=== PATIENT | male | born 1950 | race Two or more races ===

== ENCOUNTER 2017-03-15 08:26 | Emergency (ER) | payer MEDICARE, MEDICAID ==
[~2017-03-15] VITALS: Ht 175.3 cm; Wt 99.8 kg
[~2017-03-15 08:26] MED LIST: ALEN35TA2; AMLO5TAB2 PO; BENA20TA; CALC600T57; CHOL100029; INSLANTI; INSLISPI
[2017-03-15 10:27] VITALS: BP 101/55
== END 2017-03-15 15:09 | disposition home or self-care (01) ==
LOC: ER 08:26
DX: S90.812A Abrasion, left foot, initial encounter (principal); L03.116 Cellulitis of left lower limb; E11.9 Type 2 diabetes mellitus without complications; I48.91 Unspecified atrial fibrillation; Z79.01 Long term (current) use of anticoagulants; I10 Essential (primary) hypertension; E78.5 Hyperlipidemia, unspecified; Z90.89 Acquired absence of other organs; Z88.6 Allergy status to analgesic agent; Z89.512 Acquired absence of left leg below knee; X58.XXXA Exposure to other specified factors, initial encounter; Y93.89 Activity, other specified; Y99.8 Other external cause status; Y92.89 Other specified places as the place of occurrence of the external cause

== ENCOUNTER 2017-05-28 11:21 | Emergency (ER) | payer MEDICARE, MEDICAID ==
[~2017-05-28] VITALS: Ht 180.3 cm; Wt 95.3 kg
[2017-05-28 12:51] LABS: Basophils # (auto) 0 uL; Basophils % (auto) 0.3 % (0.0-2.0); CONDITION Y; Eosinophils # (auto) 0.1 uL; Eosinophils % (auto) 2.5 % (0.0-7.0); Hematocrit 33.4 % (41.0-53.0); Hemoglobin 11.9 g/dL (13.5-17.5); Lymphocytes # (auto) 1.1 uL; Lymphocytes % (auto) 19.5 % (10.0-50.0); Mean Corpuscular Hemoglobin 31.6 pg (28.0-32.0); Mean Corpuscular Hgb Conc. 35.7 g/dL (32.0-36.0); Mean Corpuscular Volume 88.7 fL (80.0-100.0); Mean Platelet Volume 9.9 fL (7.4-10.4); Monocytes # (auto) 0.5 uL; Monocytes % (auto) 9.4 % (0.0-12.0); Neutrophils # (auto) 3.7 uL; Neutrophils % (auto) 68.3 % (37.0-80.0); Platelet Count (auto) 89 10^3/uL (140-450); Red Cell Distribution Width 14.3 % (11.6-16.0); White Blood Cell 5.4 10^3/uL (4.4-10.8)
[2017-05-28 13:11] LABS: Bilirubin, Total 1.3 mg/dL (0.2-1.0); Calcium 8.7 mg/dL (8.5-10.1); Potassium 4.1 mmol/L (3.5-5.1)
[2017-05-28] MEDS ORDERED: SODIUM CHLORIDE 0.9% 1,000 ML IV ONE (20:00)
[2017-05-28] MEDS ORDERED: InsuLIN REG 1unit/0.01ml Soln (100units/ml) IV ONE (21:15)
[2017-05-28 21:30] VITALS: BP 134/71
[2017-05-28 21:30] LABS: Urine Bilirubin Negative (Negative); Urine Blood 2+ /uL (Negative); Urine Color Yellow (Yellow); Urine Glucose 4+ mg/dL (Normal); Urine Hyaline Cast FEW /lpf (0 - 2); Urine Ketone Negative (Negative); Urine Nitrite Negative (Negative); Urine RBC 247 /hpf (0 - 3); Urine Squamous Epithelial Cell FEW /hpf (<5); Urine Urobilinogen Normal (Negative); Urine pH 5.5 (5.0-8.0)
[2017-05-28 21:51] LABS: INR 1.18 (0.9-1.15); Partial Thromboplastin Time 31.7 sec (22.64-33.71); Prothrombin Time 12.9 sec (9.37-12.3)
== END 2017-05-29 00:41 | disposition home or self-care (01) ==
LOC: ER 11:32
DX: D69.6 Thrombocytopenia, unspecified (principal); K74.60 Unspecified cirrhosis of liver; E11.9 Type 2 diabetes mellitus without complications; R16.1 Splenomegaly, not elsewhere classified; I48.91 Unspecified atrial fibrillation; I25.10 Atherosclerotic heart disease of native coronary artery without angina pectoris; I10 Essential (primary) hypertension; E78.5 Hyperlipidemia, unspecified; I73.9 Peripheral vascular disease, unspecified; Z89.512 Acquired absence of left leg below knee; Z79.4 Long term (current) use of insulin; Z88.6 Allergy status to analgesic agent
CPT/HCPCS: 36415; 74176; 80053; 80307; 81001; 82010; 82962; 85025; 85610; 85730; 96361; 96374; 99285; J1815; J7030

== ENCOUNTER 2017-11-01 09:23 | Emergency (ER) | payer MEDICARE, MEDICAID ==
[~2017-11-01] VITALS: Ht 180.3 cm; Wt 79.8 kg
[2017-11-01 11:35] LABS: Basophils # (auto) 0 uL; Basophils % (auto) 0.8 % (0.0-2.0); Eosinophils # (auto) 0.1 uL; Eosinophils % (auto) 3.5 % (0.0-7.0); Hematocrit 33.9 % (41.0-53.0); Hemoglobin 11.6 g/dL (13.5-17.5); Lymphocytes # (auto) 0.7 uL; Lymphocytes % (auto) 17.7 % (10.0-50.0); Mean Corpuscular Hemoglobin 31.3 pg (28.0-32.0); Mean Corpuscular Hgb Conc. 34.2 g/dL (32.0-36.0); Mean Corpuscular Volume 91.6 fL (80.0-100.0); Monocytes # (auto) 0.4 uL; Monocytes % (auto) 10.3 % (0.0-12.0); Neutrophils # (auto) 2.5 uL; Neutrophils % (auto) 67.7 % (37.0-80.0); Nucleated Red Blood Cells % 0.2 %; Platelet Count (auto) 71 10^3/uL (140-450); Red Cell Distribution Width 15.2 % (11.8-14.3); White Blood Cell 3.8 10^3/uL (4.4-10.8)
[2017-11-01 11:49] LABS: Alanine Aminotransferase 42 U/L (16-61); Albumin 2.5 g/dL (3.4-5.0); Alkaline Phosphatase 118 U/L (45-117); Anion Gap 8 (5-15); Aspartate Aminotransferase 62 U/L (15-37); BUN/Creatinine Ratio 17.1; Bilirubin, Total 0.9 mg/dL (0.2-1.0); Blood Urea Nitrogen 19 mg/dL (7-18); Calcium 7.8 mg/dL (8.5-10.1); Carbon Dioxide 24 mmol/L (21-32); Chloride 109 mmol/L (98-107); GFR African American 85 mL/min; GFR Non-African American 70 mL/min; Glucose 208 mg/dL (74-106); Potassium 4.6 mmol/L (3.5-5.1); Sodium 141 mmol/L (136-145)
[2017-11-01 14:54] VITALS: BP 122/67
== END 2017-11-01 14:54 | disposition home or self-care (01) ==
LOC: EDBD → ER 09:23
DX: K74.60 Unspecified cirrhosis of liver (principal); E11.9 Type 2 diabetes mellitus without complications; E78.5 Hyperlipidemia, unspecified; I10 Essential (primary) hypertension; Z90.49 Acquired absence of other specified parts of digestive tract
CPT/HCPCS: 36415; 74176; 80053; 84484; 85025; 93005; 94761

== ENCOUNTER 2017-11-04 09:00 | Emergency (ER) | payer MEDICARE, MEDICAID ==
[~2017-11-04] VITALS: Ht 180.3 cm; Wt 79.8 kg
[2017-11-04 10:41] LABS: Basophils # (auto) 0 uL; Basophils % (auto) 0.8 % (0.0-2.0); Eosinophils # (auto) 0.2 uL; Eosinophils % (auto) 4.3 % (0.0-7.0); Hematocrit 32.8 % (41.0-53.0); Hemoglobin 11.1 g/dL (13.5-17.5); Lymphocytes % (auto) 18.8 % (10.0-50.0); Mean Corpuscular Hgb Conc. 33.8 g/dL (32.0-36.0); Mean Corpuscular Volume 91.9 fL (80.0-100.0); Monocytes # (auto) 0.6 uL; Monocytes % (auto) 11.1 % (0.0-12.0); Neutrophils # (auto) 3.4 uL; Nucleated Red Blood Cells % 0.1 %; Platelet Count (auto) 81 10^3/uL (140-450); Red Blood Cells 3.57 10^6/uL (4.5-5.90); Red Cell Distribution Width 15.5 % (11.8-14.3); White Blood Cell 5.3 10^3/uL (4.4-10.8)
[2017-11-04 10:53] LABS: INR 1.14 (0.9-1.15); Partial Thromboplastin Time 32.4 sec (22.64-33.71); Prothrombin Time 12.4 sec (9.37-12.3)
[2017-11-04 11:12] LABS: Albumin 2.7 g/dL (3.4-5.0); BUN/Creatinine Ratio 15.2; Bilirubin, Total 1.2 mg/dL (0.2-1.0); Calcium 8.2 mg/dL (8.5-10.1); Potassium 4.3 mmol/L (3.5-5.1); Total Protein 7.5 g/dL (6.4-8.2)
[2017-11-04 16:02] VITALS: BP 120/68
== END 2017-11-04 16:48 | disposition home or self-care (01) ==
LOC: EDBD → ER 09:00
DX: R18.8 Other ascites (principal); E11.9 Type 2 diabetes mellitus without complications; E78.5 Hyperlipidemia, unspecified; I10 Essential (primary) hypertension; Z90.49 Acquired absence of other specified parts of digestive tract; Z79.4 Long term (current) use of insulin
CPT/HCPCS: 36415; 76705; 80053; 85025; 85610; 85730

== ENCOUNTER 2017-11-15 10:09 | Emergency (ER) | payer MEDICARE, MEDICAID ==
[~2017-11-15] VITALS: Ht 180.3 cm; Wt 79.8 kg
[2017-11-15 10:55] LABS: Basophils # (auto) 0 uL; Basophils % (auto) 0.4 % (0.0-2.0); Eosinophils # (auto) 0.1 uL; Eosinophils % (auto) 1.9 % (0.0-7.0); Hematocrit 30.3 % (41.0-53.0); Hemoglobin 10.5 g/dL (13.5-17.5); Lymphocytes # (auto) 0.8 uL; Lymphocytes % (auto) 15.2 % (10.0-50.0); Mean Corpuscular Hemoglobin 31.7 pg (28.0-32.0); Mean Corpuscular Hgb Conc. 34.6 g/dL (32.0-36.0); Mean Corpuscular Volume 91.7 fL (80.0-100.0); Monocytes # (auto) 0.5 uL; Monocytes % (auto) 9.2 % (0.0-12.0); Neutrophils # (auto) 3.7 uL; Neutrophils % (auto) 73.3 % (37.0-80.0); Platelet Count (auto) 83 10^3/uL (140-450); Red Cell Distribution Width 15.2 % (11.8-14.3)
[2017-11-15 11:18] LABS: Alanine Aminotransferase 45 U/L (16-61); Albumin 2.6 g/dL (3.4-5.0); Alkaline Phosphatase 128 U/L (45-117); Amylase 87 U/L (25-115); Anion Gap 9 (5-15); Aspartate Aminotransferase 66 U/L (15-37); BUN/Creatinine Ratio 16.7; Bilirubin, Total 1.5 mg/dL (0.2-1.0); Blood Urea Nitrogen 20 mg/dL (7-18); Calcium 7.8 mg/dL (8.5-10.1); Carbon Dioxide 23 mmol/L (21-32); Chloride 105 mmol/L (98-107); GFR African American 78 mL/min; GFR Non-African American 64 mL/min; Glucose 187 mg/dL (74-106); Lipase 168 U/L (73-393); Potassium 3.7 mmol/L (3.5-5.1); Sodium 137 mmol/L (136-145); Total Protein 7.4 g/dL (6.4-8.2)
[2017-11-15 16:07] LABS: Urine Bacteria NONE SEEN /hpf (None Seen); Urine Blood Negative /uL (Negative); Urine Specific Gravity 1.011 (1.001-1.035); Urine WBC 1 /hpf (0 - 3)
[2017-11-15 18:00] VITALS: BP 139/84
== END 2017-11-15 18:07 | disposition home or self-care (01) ==
LOC: ER 10:09 → EDBD 10:09 → ER 18:07
DX: K74.69 Other cirrhosis of liver (principal); I10 Essential (primary) hypertension; E11.9 Type 2 diabetes mellitus without complications; E78.5 Hyperlipidemia, unspecified; Z89.512 Acquired absence of left leg below knee; Z79.4 Long term (current) use of insulin; Z88.6 Allergy status to analgesic agent
CPT/HCPCS: 36415; 74176; 80053; 81001; 82150; 82962; 83690; 84484; 85025; 93005

== ENCOUNTER 2017-12-15 14:31 | Inpatient (IN) | payer MEDICARE, MEDICAID ==
[~2017-12-15] VITALS: Ht 175.3 cm; Wt 91.0 kg
[2017-12-15 15:35] LABS: Basophils # (auto) 0 uL; Basophils % (auto) 0.2 % (0.0-2.0); Eosinophils # (auto) 0 uL; Eosinophils % (auto) 0.2 % (0.0-7.0); Hemoglobin 9.8 g/dL (13.5-17.5); Lymphocytes # (auto) 0.4 uL; Lymphocytes % (auto) 4.2 % (10.0-50.0); Mean Corpuscular Hemoglobin 30.9 pg (28.0-32.0); Mean Corpuscular Hgb Conc. 33.9 g/dL (32.0-36.0); Mean Corpuscular Volume 91.3 fL (80.0-100.0); Monocytes # (auto) 0.6 uL; Monocytes % (auto) 6.6 % (0.0-12.0); Neutrophils # (auto) 7.5 uL; Neutrophils % (auto) 88.8 % (37.0-80.0); Nucleated Red Blood Cells % 0.1 %; Platelet Count (auto) 138 10^3/uL (140-450); Red Blood Cells 3.18 10^6/uL (4.5-5.90); Red Cell Distribution Width 14.9 % (11.8-14.3); White Blood Cell 8.4 10^3/uL (4.4-10.8)
[2017-12-15 15:49] LABS: INR 1.32 (0.9-1.15); Partial Thromboplastin Time 35.7 sec (22.64-33.71); Prothrombin Time 14.4 sec (9.37-12.3)
[2017-12-15 15:52] LABS: Albumin 2.4 g/dL (3.4-5.0); Anion Gap 12 (5-15); Blood Alcohol < 3.0 mg/dL (0-5); Calcium 7.9 mg/dL (8.5-10.1); Carbon Dioxide 21 mmol/L (21-32); Chloride 106 mmol/L (98-107); Glucose 149 mg/dL (74-106); Magnesium 1.8 mg/dL (1.6-2.6); Potassium 4.1 mmol/L (3.5-5.1); Sodium 139 mmol/L (136-145)
[2017-12-15 15:57] LABS: Alanine Aminotransferase 44 U/L (16-61); Alkaline Phosphatase 116 U/L (45-117); Aspartate Aminotransferase 76 U/L (15-37); BUN/Creatinine Ratio 18.1; Bilirubin, Total 1.6 mg/dL (0.2-1.0); Blood Urea Nitrogen 25 mg/dL (7-18); GFR African American 66 mL/min; GFR Non-African American 55 mL/min; Total Protein 7.4 g/dL (6.4-8.2)
[2017-12-15 18:25] LABS: Urine Bacteria NONE SEEN /hpf (None Seen); Urine Blood Negative /uL (Negative); Urine Hyaline Cast FEW /lpf (0 - 2); Urine Mucus FEW (None Seen); Urine Specific Gravity 1.018 (1.001-1.035); Urine WBC 3 /hpf (0 - 3)
[2017-12-16] MEDS ORDERED: ACETAMINOPHEN 500 MG TAB PO PRN (01:45)
[2017-12-16] MEDS ORDERED: ONDANSETRON HCL 4 MG/2 ML VIAL IV PRN (01:45)
[2017-12-16] MEDS ORDERED: DEXTROSE (50%) 50ML SYRG IV PRN (01:45)
[2017-12-16] MEDS ORDERED: HYDROcodone-ACET 5/325MG TAB PO PRN (01:45)
[2017-12-16 03:30] VITALS: BP 140/73
[2017-12-16 05:21] VITALS: BP 140/73
[2017-12-16] MEDS ORDERED: INFLUENZA QUAD 2017-2018 0.5 ML SYRG IM ONE (06:15)
[2017-12-16] MEDS: InsuLIN REG 1unit/0.01ml Soln (100units/ml) SC SCH ×3 (07:00→17:00)
[2017-12-16] MEDS: ACCU-CHEK COMFORT CURVE STRIP VI SCH ×4 (07:00→21:56)
[2017-12-16 07:51] LABS: Basophils # (auto) 0.1 uL; Basophils % (auto) 1.1 % (0.0-2.0); Eosinophils # (auto) 0.1 uL; Eosinophils % (auto) 1.6 % (0.0-7.0); Hemoglobin 8.9 g/dL (13.5-17.5); Lymphocytes # (auto) 0.5 uL; Lymphocytes % (auto) 8.6 % (10.0-50.0); Mean Corpuscular Hemoglobin 30.9 pg (28.0-32.0); Mean Corpuscular Hgb Conc. 34.1 g/dL (32.0-36.0); Mean Corpuscular Volume 90.6 fL (80.0-100.0); Monocytes # (auto) 0.7 uL; Monocytes % (auto) 10.9 % (0.0-12.0); Neutrophils # (auto) 4.6 uL; Neutrophils % (auto) 77.8 % (37.0-80.0); Nucleated Red Blood Cells % 0.1 %; Platelet Count (auto) 117 10^3/uL (140-450); Red Blood Cells 2.87 10^6/uL (4.5-5.90)
[2017-12-16 08:00] VITALS: BP 143/77
[2017-12-16 08:08] LABS: BUN/Creatinine Ratio 21.7; Calcium 7.9 mg/dL (8.5-10.1); Potassium 4.1 mmol/L (3.5-5.1)
[2017-12-16] MEDS: FUROSEMIDE 20 MG TAB PO SCH (09:51)
[2017-12-16] MEDS: SPIRONOLACTONE 25 MG TAB PO SCH (09:51)
[2017-12-16] MEDS: BENAZEPRIL HCL 10 MG TAB PO SCH (09:52)
[2017-12-16] MEDS: ASPirin-EC 81 mg tab PO SCH (09:52)
[2017-12-16] MEDS: PROPRANOLOL HCL 20 MG TAB PO SCH ×2 (09:53→21:55)
[2017-12-16 12:00] VITALS: BP 132/67
[2017-12-16] MEDS ORDERED: LIDOCAINE 2%HCL (LOCAL ANESTH.) INJ 20ML MDV ONE (13:05)
[2017-12-16 16:56] VITALS: BP 107/60
[2017-12-16] MEDS ORDERED: ATORVASTATIN 20 MG TAB PO SCH (22:00)
[2017-12-16] MEDS ORDERED: InsuLIN REG 1unit/0.01ml Soln (100units/ml) SC SCH (22:00)
[2017-12-16 23:17] VITALS: BP 102/60
[2017-12-17 05:00] VITALS: BP 107/63
[2017-12-17] MEDS: InsuLIN REG 1unit/0.01ml Soln (100units/ml) SC SCH ×2 (06:44→11:30)
[2017-12-17] MEDS: ACCU-CHEK COMFORT CURVE STRIP VI SCH ×2 (06:44→11:30)
[2017-12-17 08:38] VITALS: BP 102/62
[2017-12-17] MEDS: ASPirin-EC 81 mg tab PO SCH (09:59)
[2017-12-17] MEDS: SPIRONOLACTONE 25 MG TAB PO SCH (09:59)
[2017-12-17] MEDS: BENAZEPRIL HCL 10 MG TAB PO SCH (10:00)
[2017-12-17] MEDS: FUROSEMIDE 20 MG TAB PO SCH (10:00)
[2017-12-17] MEDS: PROPRANOLOL HCL 20 MG TAB PO SCH (10:01)
[2017-12-17 12:03] VITALS: BP 100/65
[2017-12-17 12:24] VITALS: BP 102/62
[2017-12-17 12:30] VITALS: BP 102/62
[2017-12-17] MEDS ORDERED: INFLUENZA QUAD 2017-2018 0.5 ML SYRG IM ONE (12:30)
== END 2017-12-17 14:55 | disposition home or self-care (01) ==
LOC: ER 14:31 → EDBD 14:31 → OVERFLOW 14:32 → CENTRAL 12-16 03:10
PROVIDERS: ADMIT Nurse Practitioner Family; ATTEND Internal Medicine
PROC: 0W9G30Z Drainage of Peritoneal Cavity with Drainage Device, Percutaneous Approach (ICD-10-PCS; principal; 2017-12-16)
DX: K74.60 Unspecified cirrhosis of liver (principal); E44.0 Moderate protein-calorie malnutrition; R18.8 Other ascites; K76.6 Portal hypertension; D69.6 Thrombocytopenia, unspecified; E11.22 Type 2 diabetes mellitus with diabetic chronic kidney disease; E66.9 Obesity, unspecified; E78.5 Hyperlipidemia, unspecified; I12.9 Hypertensive chronic kidney disease with stage 1 through stage 4 chronic kidney disease, or unspecified chronic kidney disease; D64.9 Anemia, unspecified; K75.81 Nonalcoholic steatohepatitis (NASH); N18.9 Chronic kidney disease, unspecified; Z79.4 Long term (current) use of insulin; Z79.83 Long term (current) use of bisphosphonates; Z82.49 Family history of ischemic heart disease and other diseases of the circulatory system; Z89.512 Acquired absence of left leg below knee; Z83.3 Family history of diabetes mellitus; Z88.5 Allergy status to narcotic agent; Z23 Encounter for immunization; Z68.29 Body mass index [BMI] 29.0-29.9, adult
CPT/HCPCS: 10022; 36415; 49083; 71045; 74176; 76705; 76942; 80048; 80053; 80320; 81001; 82140; 82962; 83036; 83735; 84484; 85025; 85610; 85730; 87081; 93005; 94761; 97163; G0378; J1815

== ENCOUNTER 2017-12-22 05:58 | Inpatient (IN) | payer MEDICARE, MEDICAID ==
[~2017-12-22] VITALS: Ht 180.3 cm; Wt 96.0 kg
[2017-12-22] MEDS ORDERED: SODIUM CHLORIDE 0.9% 1,000 ML IV ONE ×2 (07:09)
[2017-12-22 07:50] LABS: Basophils # (auto) 0 uL; Basophils % (auto) 0.5 % (0.0-2.0); Eosinophils # (auto) 0.1 uL; Eosinophils % (auto) 1.7 % (0.0-7.0); Hematocrit 31.4 % (41.0-53.0); Hemoglobin 10.5 g/dL (13.5-17.5); Lymphocytes # (auto) 0.8 uL; Lymphocytes % (auto) 12.7 % (10.0-50.0); Mean Corpuscular Hemoglobin 30.6 pg (28.0-32.0); Mean Corpuscular Hgb Conc. 33.4 g/dL (32.0-36.0); Mean Corpuscular Volume 91.7 fL (80.0-100.0); Monocytes # (auto) 0.5 uL; Monocytes % (auto) 8.1 % (0.0-12.0); Neutrophils # (auto) 4.9 uL; Nucleated Red Blood Cells % 0.1 %; Platelet Count (auto) 129 10^3/uL (140-450); Red Blood Cells 3.43 10^6/uL (4.5-5.90); Red Cell Distribution Width 15.7 % (11.8-14.3); White Blood Cell 6.3 10^3/uL (4.4-10.8)
[2017-12-22 08:05] LABS: Albumin 2.3 g/dL (3.4-5.0); Anion Gap 11 (5-15); Aspartate Aminotransferase 83 U/L (15-37); Blood Urea Nitrogen 23 mg/dL (7-18); Calcium 7.7 mg/dL (8.5-10.1); Carbon Dioxide 21 mmol/L (21-32); Chloride 107 mmol/L (98-107); GFR African American 77 mL/min; GFR Non-African American 64 mL/min; Glucose 168 mg/dL (74-106); Potassium 4.6 mmol/L (3.5-5.1); Sodium 139 mmol/L (136-145)
[2017-12-22 08:06] LABS: INR 1.22 (0.9-1.15); Partial Thromboplastin Time 35.3 sec (22.64-33.71); Prothrombin Time 13.3 sec (9.37-12.3)
[2017-12-22 08:09] LABS: Alanine Aminotransferase 58 U/L (16-61); Alkaline Phosphatase 123 U/L (45-117); Bilirubin, Total 0.9 mg/dL (0.2-1.0); Lactic Acid w/Reflex 2.1 mmol/L (0.4-2.0); Total Protein 7.2 g/dL (6.4-8.2)
[2017-12-22] MEDS ORDERED: MORPHINE SULFATE 4 MG/ML SYR/VIAL IV PRN (10:00)
[2017-12-22] MEDS ORDERED: ONDANSETRON HCL 4 MG/2 ML VIAL IV PRN (10:00)
[2017-12-22] MEDS ORDERED: traMADol HCL 50 MG TAB PO PRN ×2 (10:00→15:45)
[2017-12-22] MEDS ORDERED: DEXTROSE (50%) 50ML SYRG IV PRN (10:00)
[2017-12-22] MEDS ORDERED: amLODIPine BESYLATE 5 MG TAB PO SCH (10:00)
[2017-12-22] MEDS: CHOLECALCIFEROL (VITD3) 1,000 UNIT TAB PO SCH (10:40)
[2017-12-22] MEDS: PANTOPRAZOLE 40 MG TAB PO SCH (10:40)
[2017-12-22] MEDS ORDERED: SPIRONOLACTONE 25 MG TAB PO ONE (10:45)
[2017-12-22] MEDS: ACCU-CHEK COMFORT CURVE STRIP VI SCH ×3 (11:49→22:16)
[2017-12-22] MEDS: InsuLIN REG 1unit/0.01ml Soln (100units/ml) SC SCH ×3 (11:51→22:25)
[2017-12-22 16:24] LABS: Urine Bacteria FEW /hpf (None Seen); Urine Blood 1+ /uL (Negative); Urine Specific Gravity 1.015 (1.001-1.035); Urine WBC 142 /hpf (0 - 3); Urine WBC Clumps PRESENT /hpf (None Seen)
[2017-12-22 21:39] VITALS: BP 107/58
[2017-12-22] MEDS: SPIRONOLACTONE 25 MG TAB PO SCH (22:16)
[2017-12-23] MEDS ORDERED: CYCLOBENZAPRINE HCL 10 MG TAB PO ONE (03:00)
[2017-12-23 05:00] VITALS: BP 120/70
[2017-12-23 06:24] LABS: Basophils # (auto) 0 uL; Basophils % (auto) 0.3 % (0.0-2.0); Eosinophils # (auto) 0.1 uL; Eosinophils % (auto) 0.8 % (0.0-7.0); Hemoglobin 10.5 g/dL (13.5-17.5); Lymphocytes # (auto) 0.7 uL; Lymphocytes % (auto) 10.1 % (10.0-50.0); Mean Corpuscular Hemoglobin 30.6 pg (28.0-32.0); Mean Corpuscular Hgb Conc. 33.8 g/dL (32.0-36.0); Mean Corpuscular Volume 90.4 fL (80.0-100.0); Monocytes # (auto) 0.6 uL; Neutrophils # (auto) 5.8 uL; Neutrophils % (auto) 80.8 % (37.0-80.0); Nucleated Red Blood Cells % 0.1 %; Platelet Count (auto) 127 10^3/uL (140-450); Red Blood Cells 3.42 10^6/uL (4.5-5.90); Red Cell Distribution Width 15.1 % (11.8-14.3); White Blood Cell 7.2 10^3/uL (4.4-10.8)
[2017-12-23] MEDS: ACCU-CHEK COMFORT CURVE STRIP VI SCH ×4 (06:46→22:00)
[2017-12-23] MEDS: InsuLIN REG 1unit/0.01ml Soln (100units/ml) SC SCH ×4 (07:08→22:00)
[2017-12-23 07:11] LABS: Albumin 2.1 g/dL (3.4-5.0); BUN/Creatinine Ratio 17.6; Calcium 7.8 mg/dL (8.5-10.1); Potassium 4.9 mmol/L (3.5-5.1); Total Protein 6.9 g/dL (6.4-8.2)
[2017-12-23 09:00] VITALS: BP 134/75
[2017-12-23] MEDS ORDERED: ASPI81TA27 PO (09:22)
[2017-12-23] MEDS ORDERED: SPIRONOLACTONE 25 MG TAB PO SCH (10:00)
[2017-12-23] MEDS: CHOLECALCIFEROL (VITD3) 1,000 UNIT TAB PO SCH (10:45)
[2017-12-23] MEDS: PANTOPRAZOLE 40 MG TAB PO SCH (10:46)
[2017-12-23] MEDS: SPIRONOLACTONE 25 MG TAB PO SCH ×2 (10:46→21:55)
[2017-12-23 12:54] VITALS: BP 121/76
[2017-12-23] MEDS: cefTRIAXone 1GM/10ml IVPUSH 10 ML IV SCH (13:34)
[2017-12-23 16:52] VITALS: BP 130/75
[2017-12-23 21:30] VITALS: BP 124/74
[2017-12-24 04:37] VITALS: BP 119/69
[2017-12-24] MEDS: ACCU-CHEK COMFORT CURVE STRIP VI SCH ×2 (06:17→12:02)
[2017-12-24] MEDS: InsuLIN REG 1unit/0.01ml Soln (100units/ml) SC SCH ×2 (06:32→12:02)
[2017-12-24 09:00] VITALS: BP 128/74
[2017-12-24] MEDS: cefTRIAXone 1GM/10ml IVPUSH 10 ML IV SCH (10:44)
[2017-12-24] MEDS: CHOLECALCIFEROL (VITD3) 1,000 UNIT TAB PO SCH (10:45)
[2017-12-24] MEDS: PANTOPRAZOLE 40 MG TAB PO SCH (10:45)
[2017-12-24] MEDS: SPIRONOLACTONE 25 MG TAB PO SCH (10:45)
[2017-12-24 12:54] VITALS: BP 130/67
[2017-12-24 16:45] VITALS: BP 127/70
== END 2017-12-24 17:05 | DRG 420 ==
LOC: EDBD 05:58 → ER 06:03 → OVERFLOW 06:04 → WEST WING 17:23
PROVIDERS: ADMIT Internal Medicine; ATTEND Internal Medicine
DX: E11.649 Type 2 diabetes mellitus with hypoglycemia without coma (principal); E43 Unspecified severe protein-calorie malnutrition; G93.41 Metabolic encephalopathy; E87.2 Acidosis; D69.6 Thrombocytopenia, unspecified; R18.8 Other ascites; K74.60 Unspecified cirrhosis of liver; D64.9 Anemia, unspecified; I10 Essential (primary) hypertension; M81.0 Age-related osteoporosis without current pathological fracture; Z79.4 Long term (current) use of insulin; Z79.82 Long term (current) use of aspirin; Z79.83 Long term (current) use of bisphosphonates; Z89.512 Acquired absence of left leg below knee; Z68.29 Body mass index [BMI] 29.0-29.9, adult
CPT/HCPCS: 36415; 71045; 74176; 76700; 80053; 80320; 81001; 82140; 82962; 83605; 83880; 84154; 84484; 85025; 85610; 85730; 87040; 87081; 93005; 96360; 96361; J1815

== ENCOUNTER 2018-03-06 16:58 | Inpatient (IN) | payer MEDICARE, MEDICAID ==
[~2018-03-06] VITALS: Ht 165.1 cm; Wt 100.2 kg
[~2018-03-06 16:58] MED LIST changes: -AMLO5TAB2 PO; -BENA20TA; -CHOL100029; -INSLANTI
[2018-03-06] MEDS ORDERED: SODIUM CHLORIDE 0.9% 1,000 ML IV ONE (18:21)
[2018-03-06] MEDS ORDERED: ONDANSETRON HCL 4 MG/2 ML VIAL IV ONE (18:30)
[2018-03-06] MEDS ORDERED: MORPHINE SULFATE 8mg/ml INJ SDV IV ONE (18:30)
[2018-03-06 19:12] LABS: Basophils # (auto) 0 uL; Basophils % (auto) 0.4 % (0.0-2.0); Eosinophils # (auto) 0.1 uL; Eosinophils % (auto) 1.4 % (0.0-7.0); Hematocrit 25.5 % (41.0-53.0); Hemoglobin 8.6 g/dL (13.5-17.5); Lymphocytes # (auto) 0.5 uL; Lymphocytes % (auto) 8.5 % (10.0-50.0); Mean Corpuscular Hemoglobin 30.7 pg (28.0-32.0); Mean Corpuscular Hgb Conc. 33.7 g/dL (32.0-36.0); Mean Corpuscular Volume 90.9 fL (80.0-100.0); Monocytes # (auto) 0.5 uL; Monocytes % (auto) 7.8 % (0.0-12.0); Neutrophils % (auto) 81.9 % (37.0-80.0); Platelet Count (auto) 107 10^3/uL (140-450); Red Blood Cells 2.81 10^6/uL (4.5-5.90); Red Cell Distribution Width 15.7 % (11.8-14.3); White Blood Cell 6.2 10^3/uL (4.4-10.8)
[2018-03-06 19:25] LABS: INR 1.28 (0.9-1.15); Partial Thromboplastin Time 38.7 sec (23.78-33.04); Prothrombin Time 13.5 sec (9.27-12.13)
[2018-03-06 19:39] LABS: Alanine Aminotransferase 32 U/L (16-61); Albumin 2.5 g/dL (3.4-5.0); Alkaline Phosphatase 137 U/L (45-117); Amylase 83 U/L (25-115); Anion Gap 7 (5-15); Aspartate Aminotransferase 51 U/L (15-37); BUN/Creatinine Ratio 23.6; Blood Urea Nitrogen 25 mg/dL (7-18); CRP High Sensitivity 5.54 mg/dL (< 0.3); Calcium 8.1 mg/dL (8.5-10.1); Carbon Dioxide 23 mmol/L (21-32); Chloride 107 mmol/L (98-107); GFR African American 90 mL/min; GFR Non-African American 74 mL/min; Glucose 62 mg/dL (74-106); Lipase 172 U/L (73-393); Magnesium 1.7 mg/dL (1.6-2.6); Sodium 137 mmol/L (136-145); Total Protein 7.6 g/dL (6.4-8.2)
[2018-03-06] MEDS ORDERED: CLINDAMYCIN 900MG IV 50 ML IV ONE (21:15)
[2018-03-06] MEDS ORDERED: D5W/LACTATED RINGERS 1,000 ML IV ONE (21:15)
[2018-03-06 22:00] VITALS: BP 107/68
[2018-03-06] MEDS ORDERED: MORPHINE SULFATE 8mg/ml INJ SDV IV PRN (22:30)
[2018-03-06] MEDS ORDERED: ONDANSETRON HCL 4 MG/2 ML VIAL IV PRN (22:30)
[2018-03-07] VITALS (7 sets, daily range): BP systolic 105–117; BP diastolic 63–77
[2018-03-07 06:30] LABS: Basophils # (auto) 0 uL; Basophils % (auto) 0.6 % (0.0-2.0); Eosinophils # (auto) 0.1 uL; Eosinophils % (auto) 1.9 % (0.0-7.0); Hematocrit 24.6 % (41.0-53.0); Hemoglobin 8.5 g/dL (13.5-17.5); Lymphocytes # (auto) 0.6 uL; Mean Corpuscular Hemoglobin 31.6 pg (28.0-32.0); Mean Corpuscular Hgb Conc. 34.5 g/dL (32.0-36.0); Mean Corpuscular Volume 91.7 fL (80.0-100.0); Monocytes # (auto) 0.6 uL; Monocytes % (auto) 11.8 % (0.0-12.0); Neutrophils % (auto) 74.7 % (37.0-80.0); Nucleated Red Blood Cells % 0.1 %; Platelet Count (auto) 99 10^3/uL (140-450); Red Blood Cells 2.68 10^6/uL (4.5-5.90); Red Cell Distribution Width 15.9 % (11.8-14.3); White Blood Cell 5.3 10^3/uL (4.4-10.8)
[2018-03-07 06:31] LABS: Albumin 2.3 g/dL (3.4-5.0); Calcium 7.7 mg/dL (8.5-10.1); Potassium 4.1 mmol/L (3.5-5.1)
[2018-03-07 06:34] LABS: BUN/Creatinine Ratio 23.1
[2018-03-07 06:36] LABS: Total Protein 7.1 g/dL (6.4-8.2)
[2018-03-07] MEDS ORDERED: DEXTROSE (50%) 50ML SYRG IV PRN (07:15)
[2018-03-07] MEDS: BENAZEPRIL HCL 10 MG TAB PO SCH (09:45)
[2018-03-07] MEDS: FUROSEMIDE 20 MG TAB PO SCH (09:45)
[2018-03-07] MEDS: SPIRONOLACTONE 25 MG TAB PO SCH (09:46)
[2018-03-07] MEDS ORDERED: ASPirin-EC 81 mg tab PO SCH (10:00)
[2018-03-07] MEDS: ACCU-CHEK COMFORT CURVE STRIP VI SCH ×3 (12:14→21:55)
[2018-03-07] MEDS: InsuLIN REG 1unit/0.01ml Soln (100units/ml) SC SCH ×3 (12:18→21:57)
[2018-03-07] MEDS: ATORVASTATIN 20 MG TAB PO SCH (21:56)
[2018-03-08] VITALS (7 sets, daily range): BP systolic 107–121; BP diastolic 64–76
[2018-03-08 06:34] LABS: Basophils # (auto) 0 uL; Basophils % (auto) 0.6 % (0.0-2.0); Eosinophils # (auto) 0.1 uL; Eosinophils % (auto) 2.7 % (0.0-7.0); Hematocrit 25.6 % (41.0-53.0); Hemoglobin 8.8 g/dL (13.5-17.5); Lymphocytes # (auto) 0.7 uL; Lymphocytes % (auto) 12.5 % (10.0-50.0); Mean Corpuscular Hemoglobin 31.5 pg (28.0-32.0); Mean Corpuscular Hgb Conc. 34.5 g/dL (32.0-36.0); Mean Corpuscular Volume 91.4 fL (80.0-100.0); Monocytes # (auto) 0.6 uL; Monocytes % (auto) 10.6 % (0.0-12.0); Neutrophils # (auto) 3.9 uL; Neutrophils % (auto) 73.6 % (37.0-80.0); Platelet Count (auto) 104 10^3/uL (140-450); Red Cell Distribution Width 15.8 % (11.8-14.3); White Blood Cell 5.2 10^3/uL (4.4-10.8)
[2018-03-08 06:49] LABS: BUN/Creatinine Ratio 23.3; Magnesium 1.8 mg/dL (1.6-2.6); Potassium 4.5 mmol/L (3.5-5.1)
[2018-03-08] MEDS: InsuLIN REG 1unit/0.01ml Soln (100units/ml) SC SCH ×4 (06:51→22:19)
[2018-03-08] MEDS: ACCU-CHEK COMFORT CURVE STRIP VI SCH ×4 (06:51→22:18)
[2018-03-08] MEDS ORDERED: PHYTONADIONE ORAL Susp 10 mg/10ml PO ONE (09:45)
[2018-03-08] MEDS: FUROSEMIDE 20 MG TAB PO SCH (10:15)
[2018-03-08] MEDS: SPIRONOLACTONE 25 MG TAB PO SCH (10:15)
[2018-03-08] MEDS: BENAZEPRIL HCL 10 MG TAB PO SCH (10:15)
[2018-03-08 10:16] LABS: Urine Bacteria NONE SEEN /hpf (None Seen); Urine Blood Negative /uL (Negative); Urine Specific Gravity 1.017 (1.001-1.035); Urine WBC 2 /hpf (0 - 3)
[2018-03-08] MEDS: cefTRIAXone 1GM/10ml IVPUSH 10 ML IV SCH (10:32)
[2018-03-08] MEDS: CLINDAMYCIN 600MG IV 50 ML IV SCH ×2 (14:35→22:18)
[2018-03-08] MEDS: FUROSEMIDE 40 MG TAB PO SCH (17:56)
[2018-03-08] MEDS: ATORVASTATIN 20 MG TAB PO SCH (22:18)
[2018-03-09 05:00] VITALS: BP 124/70
[2018-03-09] MEDS: FUROSEMIDE 40 MG TAB PO SCH ×2 (06:12→16:24)
[2018-03-09] MEDS: CLINDAMYCIN 600MG IV 50 ML IV SCH ×3 (06:13→21:41)
[2018-03-09] MEDS: ACCU-CHEK COMFORT CURVE STRIP VI SCH ×4 (06:36→21:53)
[2018-03-09] MEDS: InsuLIN REG 1unit/0.01ml Soln (100units/ml) SC SCH ×4 (06:36→21:53)
[2018-03-09 06:47] LABS: INR 1.27 (0.9-1.15); Prothrombin Time 13.4 sec (9.27-12.13)
[2018-03-09 09:21] VITALS: BP 118/62
[2018-03-09] MEDS: cefTRIAXone 1GM/10ml IVPUSH 10 ML IV SCH (10:10)
[2018-03-09] MEDS: SPIRONOLACTONE 25 MG TAB PO SCH (10:10)
[2018-03-09] MEDS: BENAZEPRIL HCL 10 MG TAB PO SCH (10:11)
[2018-03-09] MEDS: FUROSEMIDE 20 MG TAB PO SCH (10:11)
[2018-03-09 13:00] VITALS: BP 121/81
[2018-03-09] MEDS ORDERED: MAGNESIUM SULFATE 1GM/100ML 100 ML IV ONE (15:45)
[2018-03-09 16:27] VITALS: BP 113/63
[2018-03-09 20:00] VITALS: BP 103/60
[2018-03-09 21:17] VITALS: BP 98/56
[2018-03-09] MEDS: ATORVASTATIN 20 MG TAB PO SCH (21:41)
[2018-03-10 04:36] VITALS: BP 103/72
[2018-03-10] MEDS: InsuLIN REG 1unit/0.01ml Soln (100units/ml) SC SCH ×3 (06:20→17:00)
[2018-03-10] MEDS: ACCU-CHEK COMFORT CURVE STRIP VI SCH ×3 (06:20→17:00)
[2018-03-10] MEDS: CLINDAMYCIN 600MG IV 50 ML IV SCH (06:20)
[2018-03-10] MEDS: FUROSEMIDE 40 MG TAB PO SCH (06:21)
[2018-03-10 08:36] VITALS: BP 119/74
[2018-03-10] MEDS: BENAZEPRIL HCL 10 MG TAB PO SCH (10:00)
[2018-03-10] MEDS: SPIRONOLACTONE 25 MG TAB PO SCH (10:00)
[2018-03-10] MEDS: cefTRIAXone 1GM/10ml IVPUSH 10 ML IV SCH (10:15)
[2018-03-10 12:14] VITALS: BP 109/56
[2018-03-10] MEDS ORDERED: LIDOCAINE 2% (LOCAL ANESTH.) PF 5ml SDV ONE (13:43)
[2018-03-10 17:31] VITALS: BP 127/65
== END 2018-03-10 20:18 | disposition home or self-care (01) | DRG 433 ==
LOC: EDBD 16:58 → ER 17:02 → OVERFLOW 17:03 → EAST 03-07 00:25
PROVIDERS: ADMIT Nurse Practitioner Family; ATTEND Internal Medicine
PROC: 0W9G3ZZ Drainage of Peritoneal Cavity, Percutaneous Approach (ICD-10-PCS; principal; 2018-03-10)
DX: K74.60 Unspecified cirrhosis of liver (principal); R18.8 Other ascites; E44.0 Moderate protein-calorie malnutrition; D63.8 Anemia in other chronic diseases classified elsewhere; E11.9 Type 2 diabetes mellitus without complications; E66.9 Obesity, unspecified; L03.90 Cellulitis, unspecified; I10 Essential (primary) hypertension; Z79.4 Long term (current) use of insulin; Z79.83 Long term (current) use of bisphosphonates; Z89.519 Acquired absence of unspecified leg below knee; Z88.5 Allergy status to narcotic agent; Z68.36 Body mass index [BMI] 36.0-36.9, adult; Z90.49 Acquired absence of other specified parts of digestive tract
CPT/HCPCS: 10022; 36415; 74176; 76942; 80048; 80053; 81001; 82150; 82962; 83690; 83735; 84132; 84484; 85025; 85610; 85730; 86141; 87040; 93005; 93926; 94761; 96361; 96365; 96375; J1815; J2270; J2405; J3490